=== PATIENT | male | born 1980 | race Caucasian/White ===

== ENCOUNTER 2017-12-05 15:54 | Observation (INO) ==
--- NOTE | 2017-12-05 17:52 | Emergency Department Note ---
Disposition Clinical Impression: Abdominal pain Qualifiers: Abdominal location: right lower quadrant Qualified Code(s): R10.31 - Right lower quadrant pain Altered mental status Qualifiers: Altered mental status type: disorientation Qualified Code(s): R41.0 - Disorientation, unspecified Disposition: Admitted As Inpatient Condition: Fair Time of Disposition: 19:36 Abdominal Pain HPI - General Chief Complaint: ED Abdominal Pain Stated Complaint: Jaundice,Hep C positive Time Seen by Provider: 12/05/17 17:22 Source: patient, other - History of Present Illness HPI Narrative: 37 y/o male with PMH of Hep C and HTN presents to ED with complaints of worsening confusion and lethargy. Pt states that yesterday he was becoming sleepy and confused, SO states that it worsened this morning. SO states that she has noticed that his skin seems more yellow. He feels like his head is in a fog and is sleepy. He has some left sided CP, abdominal pain in the RUQ and RLQ. He states that the abd pain is sharp, beginning in the RLQ and radiating up to the RUQ. He denies nausea, vomiting or diarrhea. He has been constipated, although states that his last BM was 4 hours ago and prior to that he had a BM yesterday. Denies recent sick contacts. Pt denies hallucinations. SO notes that he has not been taking his blood pressure medications. He does not see anyone for his Hep C. He denies recent illicit drug use, but admits to using heroin 1 week ago. Denies benzo use. Denies ETOH use. Pain Scale: 5 - Related Data Home Medications Medication Instructions Recorded Confirmed Buprenorphine HCl/Naloxone HCl 1 tab SL BID 12/05/17 12/05/17 [Buprenorphin-Naloxon 8-2 mg Sl] Allergies Allergy/AdvReac Type Severity Reaction Status Date / Time No Known Allergies Allergy Verified 12/05/17 16:36 All systems ED: reviewed and negative except as stated. 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 Absent: tenderness, lymphadenopathy - Chest Chest inspection: Present: normal inspection, symmetric chest wall rise - Respiratory Respiratory exam: Present: normal lung sounds bilaterally. Absent: respiratory distress, wheezes, stridor, accessory muscle use - Cardiovascular Cardiovascular exam: Present: regular rate, normal rhythm, normal heart sounds, +S1, +S2 - Abdominal Exam Abdominal exam: Present: soft, tenderness, guarding, normal bowel sounds, psoas sign, Tellez's sign, tenderness at McBurney's Point. Absent: distention, rebound, rigidity, obturator sign, heel tap sign, Rovsing's sign, ascites, mass , bruit, hernia, scar Abdominal tenderness: Present: RUQ, RLQ, moderate - Extremities Exam Extremities exam: Present: normal inspection, normal capillary refill, pedal edema (trace). Absent: tenderness - Back Exam Back exam: Present: normal inspection. Absent: CVA tenderness (R), CVA tenderness (L) - Neurological Exam Neurological exam: Present: alert, oriented X3 - Expanded Neurological Exam Patient oriented to: Present: person, place, time Speech: Present: fluid speech (although it is slurred) Coma Scale Eye Opening: Spontaneous Coma Scale Motor Response: Obeys Commands Coma Scale Verbal Response: Oriented Coma Scale Total: 15 - Psychiatric Psychiatric exam: Present: flat affect, other (jaundice) - Skin Skin exam: Present: warm, dry, intact, other Course - Consultations Consultation #1: Discussed the case with Dr. Cooper with Hospitalist service who has accepted pt for admission. Time: 19:36 Vital Signs Temperature 98.1 F 12/05/17 16:37 Pulse Rate 92 12/05/17 16:37 Respiratory Rate 20 12/05/17 16:37 Blood Pressure 115/74 12/05/17 16:37 O2 Sat by Pulse Oximetry 97 12/05/17 16:37 Temperature 98.1 F 12/05/17 16:37 Pulse Rate 87 12/05/17 19:44 Respiratory Rate 12 12/05/17 19:44 Blood Pressure 130/71 12/05/17 19:44 O2 Sat by Pulse Oximetry 97 12/05/17 19:44 Oxygen Delivery Oxygen Delivery Room Air Abdominal Pain - MDM Narrative Medical decision making narrative: 37 y/o male presents with acute onset of rlq abd pain radiating to ruq described as sharp. Pt SO describes increasing lethargy and confusion. Pt noted to be falling asleep during exam, lab staff also noted that pt became more lethargic from lab draw in triage to room. Pt a&o x3. mild jaundice and mild scleral icterus. Pt has RLQ and RUQ pain, positive mcburney and tellez's sign. CBC, CMP, trop, lactic acid, ammonia WNL. UDS positive for benzos. Hepatitis panel, HIV and BC pending. CT head and abdomen negative. Pt has become more lethargic during visit. Mom is now present and states that he and his SO were just released from acute detox facility and started on suboxone. He took one dose yesterday, has not taken any today. Bottle is present with only 5 pills in it, original quantity was 6. Mom states pt has long hx of drug abuse over the past several years and she is not sure what he is into. Pt discussed with hospitalists. Will admit for observation of neuro status and possible MRI in the AM. - Differential Diagnosis Differential Diagnosis: Likely: abdominal pain non-specific, acute appendicitis , constipation - Lab Data Lab results reviewed: Yes I reviewed the patient's lab results. Result diagrams: 12/05/17 17:13 12/05/17 17:13 Lab Results 12/05/17 12/05/17 12/05/17 Range/Units 17:13 17:13 17:50 WBC 7.4 (4.3-11.1) K/mcL RBC 5.06 (4.19-5.50) M/mcL Hgb 14.9 (12.9-16.9) g/dL Hct 45.1 (37.5-50.1) % MCV 89.1 (83.0-100.0) fL MCH 29.4 (28.0-33.3) pg MCHC 33.0 (31.6-35.5) g/dL RDW 13.1 (11.5-14.5) % Plt Count 204 (140-400) K/mcL MPV 11.3 (9.4-12.4) fL Immature Gran % 0.5 (0-4) % Seg Neutrophils % 54.8 % Lymphocytes % 30.4 % Monocytes % 9.0 % Eosinophils % 5.0 % Basophils % 0.3 % Neutrophils # 4.1 (1.6-8.9) K/mcL Lymphocytes # 2.3 (0.6-4.6) K/mcL Monocytes # 0.7 (0.0-1.3) K/mcL Eosinophils # 0.4 (0.0-0.6) K/mcL Basophils # 0.0 (0.0-0.2) K/mcL PT (9.4-12.1) Seconds INR APTT (26.0-36.0) Seconds Sodium 137 (136-145) mEq/L Potassium 4.1 (3.5-5.1) mEq/L Chloride 103 (98-107) mEq/L Carbon Dioxide 27 (23-29) mEq/L BUN 13 (6-20) mg/dL Creatinine 0.88 (0.70-1.30) mg/dL Est GFR ( Amer) > 60 (> 60) Est GFR (Non-Af Amer) > 60 (> 60) BUN/Creatinine Ratio 15 (6-26) Glucose 85 (70-105) mg/dL Calculated Osmolality 283 (280-300) Lactic Acid (0.5-2.2) mmol/L Calcium 9.5 (8.6-10.3) mg/dL Phosphorus 4.0 (2.7-4.5) mg/dL Magnesium 1.9 (1.6-2.6) mg/dL Total Bilirubin 0.5 (0.3-1.0) mg/dL Direct Bilirubin 0.2 (0.0-0.2) mg/dL Indirect Bilirubin 0.3 (0.0-1.2) mg/dL AST 40 H (13-39) Units/L ALT 64 H (7-52) Units/L Alkaline Phosphatase 81 (34-104) Units/L Ammonia 43 (16-53) mcmol/L Troponin I < 0.03 (< 0.04) ng/mL Serum Total Protein 6.8 (6.4-8.9) g/dL Albumin 4.0 (3.5-5.7) g/dL Globulin 2.8 (2.4-3.5) g/dL Albumin/Globulin Ratio 1.4 (1.1-2.2) Amylase 47 (29-103) Units/L Lipase 6 L (11-82) Units/L Urine Color (Yellow) Urine Clarity (Clear) Urine pH (5.0-8.0) pH Units Ur Specific [place] (1.010-1.025) Urine Protein (Neg-Trace) mg/dL Urine Glucose (UA) (Normal) mg/dL Urine Ketones (Negative) mg/dL Urine Blood (Negative) Urine Nitrite (Negative) Urine Bilirubin (Negative) Urine Urobilinogen (Normal) mg/dL Ur Leukocyte Esterase (Negative) Ur Culture Indicated? (NO) Salicylates (15.0-30.0) mg/dL Urine Opiates Screen (Iufagy=765) ng/mL Acetaminophen (10-20) mcg/mL Ur Barbiturates Screen (Cntqfp=177) ng/mL Ur Phencyclidine Scrn (Cutoff=25) ng/mL Ur Amphetamines Screen (Jzpgkn=5498) ng/mL U Benzodiazepines Scrn (Psbasd=026) ng/mL Urine Cocaine Screen (Cutoff= 300) ng/mL U Marijuana (THC) Screen (Cutoff = 50) ng/mL Ur Drug Screen Interp Ethyl Alcohol (Less than 10) mg/dL 12/05/17 12/05/17 12/05/17 Range/Units 18:09 18:38 18:47 WBC (4.3-11.1) K/mcL RBC (4.19-5.50) M/mcL Hgb (12.9-16.9) g/dL Hct (37.5-50.1) % MCV (83.0-100.0) fL MCH (28.0-33.3) pg MCHC (31.6-35.5) g/dL RDW (11.5-14.5) % Plt Count (140-400) K/mcL MPV (9.4-12.4) fL Immature Gran % (0-4) % Seg Neutrophils % % Lymphocytes % % Monocytes % % Eosinophils % % Basophils % % Neutrophils # (1.6-8.9) K/mcL Lymphocytes # (0.6-4.6) K/mcL Monocytes # (0.0-1.3) K/mcL Eosinophils # (0.0-0.6) K/mcL Basophils # (0.0-0.2) K/mcL PT 11.9 (9.4-12.1) Seconds INR 1.1 APTT 35.1 (26.0-36.0) Seconds Sodium (136-145) mEq/L Potassium (3.5-5.1) mEq/L Chloride (98-107) mEq/L Carbon Dioxide (23-29) mEq/L BUN (6-20) mg/dL Creatinine (0.70-1.30) mg/dL Est GFR ( Amer) (> 60) Est GFR (Non-Af Amer) (> 60) BUN/Creatinine Ratio (6-26) Glucose (70-105) mg/dL Calculated Osmolality (280-300) Lactic Acid 1.2 (0.5-2.2) mmol/L Calcium (8.6-10.3) mg/dL Phosphorus (2.7-4.5) mg/dL Magnesium (1.6-2.6) mg/dL Total Bilirubin (0.3-1.0) mg/dL Direct Bilirubin (0.0-0.2) mg/dL Indirect Bilirubin (0.0-1.2) mg/dL AST (13-39) Units/L ALT (7-52) Units/L Alkaline Phosphatase (34-104) Units/L Ammonia (16-53) mcmol/L Troponin I (< 0.04) ng/mL Serum Total Protein (6.4-8.9) g/dL Albumin (3.5-5.7) g/dL Globulin (2.4-3.5) g/dL Albumin/Globulin Ratio (1.1-2.2) Amylase (29-103) Units/L Lipase (11-82) Units/L Urine Color (Yellow) Urine Clarity (Clear) Urine pH (5.0-8.0) pH Units Ur Specific [place] (1.010-1.025) Urine Protein (Neg-Trace) mg/dL Urine Glucose (UA) (Normal) mg/dL Urine Ketones (Negative) mg/dL Urine Blood (Negative) Urine Nitrite (Negative) Urine Bilirubin (Negative) Urine Urobilinogen (Normal) mg/dL Ur Leukocyte Esterase (Negative) Ur Culture Indicated? (NO) Salicylates < 2.5 L (15.0-30.0) mg/dL Urine Opiates Screen (Rscbux=971) ng/mL Acetaminophen < 10 L (10-20) mcg/mL Ur Barbiturates Screen (Bfnadt=876) ng/mL Ur Phencyclidine Scrn (Cutoff=25) ng/mL Ur Amphetamines Screen (Ceyywx=5365) ng/mL U Benzodiazepines Scrn (Vswrmo=871) ng/mL Urine Cocaine Screen (Cutoff= 300) ng/mL U Marijuana (THC) Screen (Cutoff = 50) ng/mL Ur Drug Screen Interp Ethyl Alcohol < 10 (Less than 10) mg/dL 12/05/17 12/05/17 Range/Units 18:55 18:55 WBC (4.3-11.1) K/mcL RBC (4.19-5.50) M/mcL Hgb (12.9-16.9) g/dL Hct (37.5-50.1) % MCV (83.0-100.0) fL MCH (28.0-33.3) pg MCHC (31.6-35.5) g/dL RDW (11.5-14.5) % Plt Count (140-400) K/mcL MPV (9.4-12.4) fL Immature Gran % (0-4) % Seg Neutrophils % % Lymphocytes % % Monocytes % % Eosinophils % % Basophils % % Neutrophils # (1.6-8.9) K/mcL Lymphocytes # (0.6-4.6) K/mcL Monocytes # (0.0-1.3) K/mcL Eosinophils # (0.0-0.6) K/mcL Basophils # (0.0-0.2) K/mcL PT (9.4-12.1) Seconds INR APTT (26.0-36.0) Seconds Sodium (136-145) mEq/L Potassium (3.5-5.1) mEq/L Chloride (98-107) mEq/L Carbon Dioxide (23-29) mEq/L BUN (6-20) mg/dL Creatinine (0.70-1.30) mg/dL Est GFR ( Amer) (> 60) Est GFR (Non-Af Amer) (> 60) BUN/Creatinine Ratio (6-26) Glucose (70-105) mg/dL Calculated Osmolality (280-300) Lactic Acid (0.5-2.2) mmol/L Calcium (8.6-10.3) mg/dL Phosphorus (2.7-4.5) mg/dL Magnesium (1.6-2.6) mg/dL Total Bilirubin (0.3-1.0) mg/dL Direct Bilirubin (0.0-0.2) mg/dL Indirect Bilirubin (0.0-1.2) mg/dL AST (13-39) Units/L ALT (7-52) Units/L Alkaline Phosphatase (34-104) Units/L Ammonia (16-53) mcmol/L Troponin I (< 0.04) ng/mL Serum Total Protein (6.4-8.9) g/dL Albumin (3.5-5.7) g/dL Globulin (2.4-3.5) g/dL Albumin/Globulin Ratio (1.1-2.2) Amylase (29-103) Units/L Lipase (11-82) Units/L Urine Color Yellow (Yellow) Urine Clarity Clear (Clear) Urine pH 6.0 (5.0-8.0) pH Units Ur Specific [place] 1.015 (1.010-1.025) Urine Protein Negative (Neg-Trace) mg/dL Urine Glucose (UA) Normal (Normal) mg/dL Urine Ketones Negative (Negative) mg/dL Urine Blood Negative (Negative) Urine Nitrite Negative (Negative) Urine Bilirubin Negative (Negative) Urine Urobilinogen Normal (Normal) mg/dL Ur Leukocyte Esterase Negative (Negative) Ur Culture Indicated? NO (NO) Salicylates (15.0-30.0) mg/dL Urine Opiates Screen Negative (Otmxjg=086) ng/mL Acetaminophen (10-20) mcg/mL Ur Barbiturates Screen Negative (Aetkfk=730) ng/mL Ur Phencyclidine Scrn Negative (Cutoff=25) ng/mL Ur Amphetamines Screen Negative (Fjevuk=8943) ng/mL U Benzodiazepines Scrn Positive H (Yryqmf=271) ng/mL Urine Cocaine Screen Negative (Cutoff= 300) ng/mL U Marijuana (THC) Screen Negative (Cutoff = 50) ng/mL Ur Drug Screen Interp See Below Ethyl Alcohol (Less than 10) mg/dL - Radiology Data Radiology results reviewed: Yes I reviewed the patient's radiology results. Chest X-Ray 12/05/17 16:43 IMPRESSION: No acute cardiopulmonary abnormality. D/ / Neal Schneider / Neal Schneider Interpreting Provider: Neal Schneider Head CT 12/05/17 18:02 IMPRESSION: No acute intracranial abnormality. D/ / Elian Meléndez MD / Elian Meléndez MD Interpreting Provider: Elian Meléndez MD Abdomen/Pelvis CT 12/05/17 18:05 IMPRESSION: 1. No acute abnormality within the abdomen and pelvis. 2. Subcutaneous edema. D/ / lEian Meléndez MD / Elian Meléndez MD Interpreting Provider: Elian Meléndez MD - EKG Data EKG attestation: Yes I reviewed and interpreted this EKG. EKG results narrative: Sinus rhythm with shortened MO interval of 100ms. No ST elevation or depression. VR 87, MO 100, QES 97, QT 368.
[2017-12-05 17:57] LABS: Basophils % 0.3 %; Eosinophils # 0.4 K/mcL (0.0-0.6); Hematocrit 45.1 % (37.5-50.1); Hemoglobin 14.9 g/dL (12.9-16.9); Immature Granulocytes % 0.5 % (0-4); Lymphocytes # 2.3 K/mcL (0.6-4.6); Lymphocytes % 30.4 %; Mean Corpuscular Hemoglobin 29.4 pg (28.0-33.3); Mean Corpuscular Volume 89.1 fL (83.0-100.0); Mean Platelet Volume 11.3 fL (9.4-12.4); Monocytes # 0.7 K/mcL (0.0-1.3); Neutrophils # 4.1 K/mcL (1.6-8.9); Platelet Count 204 K/mcL (140-400); Red Blood Count 5.06 M/mcL (4.19-5.50); Red Cell Distribution Width 13.1 % (11.5-14.5); Segmented Neutrophils % 54.8 %
[2017-12-05] MEDS ORDERED: Isovue-370 500 ML INFUS..BTL IV ONE (18:05)
[2017-12-05] MEDS ORDERED: 0.9 % Sodium Chloride 1,000 ML IVC ONE (18:09)
[2017-12-05 18:13] LABS: Alanine Aminotransferase 64 Units/L (7-52); Albumin/Globulin Ratio 1.4 (1.1-2.2); Alkaline Phosphatase 81 Units/L (34-104); Amylase 47 Units/L (29-103); Aspartate Amino Transferase 40 Units/L (13-39); BUN/Creatinine Ratio 15 (6-26); Bilirubin,Total 0.5 mg/dL (0.3-1.0); Blood Urea Nitrogen 13 mg/dL (6-20); Calcium 9.5 mg/dL (8.6-10.3); Carbon Dioxide 27 mEq/L (23-29); Chloride 103 mEq/L (98-107); Globulin 2.8 g/dL (2.4-3.5); Glucose 85 mg/dL (70-105); Lipase 6 Units/L (11-82); Osmolality,Calculated 283 (280-300); Potassium 4.1 mEq/L (3.5-5.1); Sodium 137 mEq/L (136-145); Total Protein 6.8 g/dL (6.4-8.9); eGFR For Non-African Americans > 60 (> 60)
[2017-12-05 18:35] LABS: Bilirubin,Direct 0.2 mg/dL (0.0-0.2); Bilirubin,Indirect 0.3 mg/dL (0.0-1.2); Magnesium 1.9 mg/dL (1.6-2.6); Troponin I < 0.03 ng/mL (< 0.04)
[2017-12-05 18:49] LABS: INR 1.1; Prothrombin Time 11.9 Seconds (9.4-12.1)
--- NOTE | 2017-12-05 18:49 | Emergency Department Note ---
Disposition Clinical Impression: Abdominal pain Qualifiers: Abdominal location: right lower quadrant Qualified Code(s): R10.31 - Right lower quadrant pain Disposition: Admitted As Inpatient Forms: ED Satisfaction Letter, Work/School Release General Adult HPI - General Chief complaint: ED Abdominal Pain Stated complaint: Jaundice,Hep C positive Time Seen by Provider: 12/05/17 17:22 Source: patient, other Limitations: altered mental status - History of Present Illness Pain Scale: 5 - Related Data Home Medications Medication Instructions Recorded Confirmed Buprenorphine HCl/Naloxone HCl 1 tab SL BID 12/05/17 12/05/17 [Buprenorphin-Naloxon 8-2 mg Sl] Allergies Allergy/AdvReac Type Severity Reaction Status Date / Time No Known Allergies Allergy Verified 12/05/17 16:36 Past Medical History - Past Medical History Medical history: Reports: hepatitis, hypertension Surgical history: Reports: no surgical history Psychiatric history: Reports: no psych history - Social History Smoking Status: Current every day smoker Smokeless Tobacco Status: No Alcohol use: Reports: none Drug use: Reports: IV Drug Use (heroin, last use 1 week ago) Physical Exam - General Limitations: altered mental status General appearance: lethargic (falling asleep during exam) Course Vital Signs Temperature 98.1 F 12/05/17 16:37 Pulse Rate 92 12/05/17 16:37 Respiratory Rate 20 12/05/17 16:37 Blood Pressure 115/74 12/05/17 16:37 O2 Sat by Pulse Oximetry 97 12/05/17 16:37 Temperature 98.1 F 12/05/17 16:37 Pulse Rate 86 12/05/17 17:41 Respiratory Rate 14 12/05/17 17:41 Blood Pressure 128/73 12/05/17 17:41 O2 Sat by Pulse Oximetry 100 12/05/17 17:41 Oxygen Delivery Oxygen Delivery Room Air Medical Decision Making - Lab Data Result diagrams: 12/05/17 17:13 12/05/17 17:13 Lab Results 12/05/17 12/05/17 Range/Units 17:13 17:13 WBC 7.4 (4.3-11.1) K/mcL RBC 5.06 (4.19-5.50) M/mcL Hgb 14.9 (12.9-16.9) g/dL Hct 45.1 (37.5-50.1) % MCV 89.1 (83.0-100.0) fL MCH 29.4 (28.0-33.3) pg MCHC 33.0 (31.6-35.5) g/dL RDW 13.1 (11.5-14.5) % Plt Count 204 (140-400) K/mcL MPV 11.3 (9.4-12.4) fL Immature Gran % 0.5 (0-4) % Seg Neutrophils % 54.8 % Lymphocytes % 30.4 % Monocytes % 9.0 % Eosinophils % 5.0 % Basophils % 0.3 % Neutrophils # 4.1 (1.6-8.9) K/mcL Lymphocytes # 2.3 (0.6-4.6) K/mcL Monocytes # 0.7 (0.0-1.3) K/mcL Eosinophils # 0.4 (0.0-0.6) K/mcL Basophils # 0.0 (0.0-0.2) K/mcL Sodium 137 (136-145) mEq/L Potassium 4.1 (3.5-5.1) mEq/L Chloride 103 (98-107) mEq/L Carbon Dioxide 27 (23-29) mEq/L BUN 13 (6-20) mg/dL Creatinine 0.88 (0.70-1.30) mg/dL Est GFR ( Amer) > 60 (> 60) Est GFR (Non-Af Amer) > 60 (> 60) BUN/Creatinine Ratio 15 (6-26) Glucose 85 (70-105) mg/dL Calculated Osmolality 283 (280-300) Calcium 9.5 (8.6-10.3) mg/dL Phosphorus 4.0 (2.7-4.5) mg/dL Magnesium 1.9 (1.6-2.6) mg/dL Total Bilirubin 0.5 (0.3-1.0) mg/dL Direct Bilirubin 0.2 (0.0-0.2) mg/dL Indirect Bilirubin 0.3 (0.0-1.2) mg/dL AST 40 H (13-39) Units/L ALT 64 H (7-52) Units/L Alkaline Phosphatase 81 (34-104) Units/L Troponin I < 0.03 (< 0.04) ng/mL Serum Total Protein 6.8 (6.4-8.9) g/dL Albumin 4.0 (3.5-5.7) g/dL Globulin 2.8 (2.4-3.5) g/dL Albumin/Globulin Ratio 1.4 (1.1-2.2) Amylase 47 (29-103) Units/L Lipase 6 L (11-82) Units/L Attestation Statement - Attestation Attestation: I examined this patient and my medical decision-making was reviewed with the Resident Physician. I agree with the documented findings, disposition and treatment plan as described except to the extent set forth below. 37 year old male presents to the ED with complaints of abdominal pain and history of hep C. PAtinet states that he has pain in the RLQ and it raadiates to the RUQ and that he has been feeling more confused that of late. PAtient states that he has no previous history of abdominal srugeies and that he was diagnosed with hep C in 2012. PAtient has been nauseated and is alert although oriented x 1. Airway intact and breathing normally. We will do abdominal pain workup and ADRIANA and danish admit for AMS.
[2017-12-05 18:52] LABS: Activated Partial Thrombo Time 35.1 Seconds (26.0-36.0)
[2017-12-05 19:11] LABS: Bilirubin,Urine Negative (Negative); Blood,Urine Negative (Negative); Clarity,Urine Clear (Clear); Color,Urine Yellow (Yellow); Glucose,Urine (UA) Normal (Normal); Ketones,Urine Negative (Negative); Leukocyte Esterase,Urine Negative (Negative); Nitrite,Urine Negative (Negative); Protein,Urine Negative (Neg-Trace); Specific Gravity,Urine 1.015 (1.010-1.025); Urobilinogen,Urine Normal (Normal)
[2017-12-05 19:21] LABS: Amphetamine Screen,Urine Negative ng/mL (Cutoff=1000); Barbiturate Screen,Urine Negative ng/mL (Cutoff=200); Benzodiazepines Screen,Urine Positive ng/mL (Cutoff=200); Cannabinoid Screen,Urine Negative ng/mL (Cutoff = 50); Cocaine Screen,Urine Negative ng/mL (Cutoff= 300); Opiate Screen,Urine Negative ng/mL (Cutoff=300); Phencyclidine Screen,Urine Negative ng/mL (Cutoff=25)
[2017-12-05 19:31] LABS: Acetaminophen < 10 mcg/mL (10-20); Ethanol < 10 mg/dL (Less than 10); Salicylate < 2.5 mg/dL (15.0-30.0)
[2017-12-05 20:27] LABS: HIV-1&2 Antibody & p24 Ag Nonreactive (Nonreactive); Hepatitis A Antibody IgM Nonreactive (Nonreactive); Hepatitis B Core IgM Nonreactive (Nonreactive); Hepatitis B Surface Antigen Nonreactive (Nonreactive)
--- NOTE | 2017-12-05 20:36 | Internal Med History&Physical ---
Date of Encounter: 12/05/17 Time of Encounter: 20:35 Internal Medicine - H&P: HPI Chief complaint: Large joint swelling, jaundice, lethargy Admitted From: Emergency Dept Plans for Post Hospital Care: Home History of present illness: Mr. Solorzano is a 37 year old male with a past medical history of hepatitis C, IV drug use, hypertension presented to emergency department with a complaint of showing swelling, lethargy, jaundice 1 day. Patient states his girlfriend first noticed scleral icterus yesterday. His hepatitis C secondary to IV drug use with most recent usage approximately 1 week ago. He does admit to heroin usage. He was also admitted to a rehabilitation facility this weekend and was discharged on Librium and Suboxone. He states he has been compliant with his medications with most recent usage being yesterday. His hepatitis C is untreated and diagnosed approximately 3 years ago. During examination this evening, patient is very lethargic and no family is present at bedside. He is able to answer questions appropriately but does fall asleep multiple times during interview. He states that he has not been having any symptoms of fevers, chills, chest pain, shortness of breath. He does admit to abdominal pain located most severely in the right lower quadrant but also admits to epigastric, right upper quadrant and suprapubic pain present in the same time. Pain is sharp and constant in nature. Also admits to some difficulty starting streams in the morning but otherwise denies urinary symptoms. Bowel movements are normal. He states he has never had complications from his hepatitis and denies any previous history of jaundice or hepatic encephalopathy. In the emerged department, vital signs are unremarkable and he is tolerating room air. Lab results significant for a very mildly elevated LFTs of AST of 40 , ALC of 64. Ammonia within normal limits at 43, lipase, white count within normal limits. Head CT was obtained and unremarkable. CT of the abdomen was also within normal limits as well as a chest x-ray. He was given 1 L saline bolus admitted to medicine floor for further evaluation for altered mental status. Past medical history as above Denies past surgical history Social history including current every day smoker, denies alcohol use, admits to IV drug use of heroin most recently 1 week ago. Past Med Surg Social Fam HX - Past Medical History Medical history: hepatitis, hypertension Additional medical history: Hep C Psychiatric history: no psych history - Past Surgical History Surgical History: no surgical history Additional surgical history: bilateral eye surgeries. right shoulder rotator cuff - Social History Smoking Status: Current every day smoker Smokeless Tobacco Status: No Alcohol use: none Drug use: IV Drug Use (heroin, last use 1 week ago) Internal Medicine - H&P: Meds Buprenorphine HCl/Naloxone HCl [Buprenorphin-Naloxon 8-2 mg Sl] 1 tab SL BID [History] 3 Allergy/AdvReac Type Severity Reaction Status Date / Time No Known Allergies Allergy Verified 12/05/17 16:36 ROS unobtainable: due to mental status All Systems PM: A 10-system review of systems was performed and is negative for pertinent findings except as documented above in the HPI. - Constitutional Constitutional: no chills, no excessive sweating, no fatigue, no fever(s), no malaise - Cardiovascular Cardiovascular ROS IM: edema, no chest pain, no diaphoresis, no dyspnea, no dyspnea on exertion, no orthopnea, no palpitations - Respiratory Respiratory: no cough, no dyspnea, no dyspnea on exertion - Gastrointestinal Gastrointestinal: abdominal pain, bloating, nausea, no change in bowel habits, no change in stool character, no constipation, no cramping, no diarrhea, no hematemesis, no hematochezia, no loose stools, no melena, no vomiting - Genitourinary Genitourinary ROS male: difficulty urinating, no dysuria, no flank pain, no hematuria - Integumentary Integumentary IM: jaundice Additional comments: Scleral icterus - Neurological Neurological ROS: confusion, no dizziness, no focal weakness, no numbness, no tingling, no weakness - Constitutional Vitals: Temp Pulse Resp BP Pulse Ox 97.5 F L 87 14 137/67 98 12/05/17 20:34 12/05/17 20:34 12/05/17 20:34 12/05/17 20:34 12/05/17 20:34 Exam: Gen.: Vitals noted. No acute distress. Alert and oriented however is very lethargic on exam. Falling asleep multiple times during interview HEENT: PERRL, oropharynx clear, Normocephalic, atraumatic, MMM. No evidence of scleral icterus Cardiac: RRR, no murmur, +S1/S2 Pulmonary: CTA bilaterally, no wheezes, rales or rhonchi, equal chest expansion Abdomen: soft, mildly tender to epigastric, right lower quadrant, right upper quadrant, BS noted, no guarding, no rebound. MSK: ROM intact, no joint swelling noted Extremities: no BLE edema, nontender calf, no cyanosis or clubbing Neuro: A&O, moves all extremities, no focal deficits, strength equal in all extremities, no numbness or tingling Psych: Unable to fully assess Internal Med - H&P Results - Labs CBC & Chem 7: 12/05/17 17:13 12/05/17 17:13 - Assessment and plan (1) Altered mental status Current Visit: Yes Status: Acute Assessment and plan: - Unclear etiology at this time - Most likely secondary to medication side effects. Patient admits to benzodiazepines, history of opioid abuse - Urine drug screen obtained emergency department positive for benzodiazepines, negative for opiates - Ammonia level within normal limits at 43. No known history of cirrhosis - Patient is alert and oriented and answers question appropriately, however he is quite lethargic on exam - CT head negative in Emergency department. Labs relatively unremarkable Plan - Continue supportive care - Consider MRI in AM if patient remains altered. - Also consider neuro consult if necessary in AM Qualifiers: Altered mental status type: somnolence Qualified Code(s): R40.0 - Somnolence (2) Abdominal pain Current Visit: Yes Status: Acute Assessment and plan: - Generalized abdominal pain, CT abdomen negative in the emergency department - Patient is noticeably falling asleep during interview - Possibly secondary to opioid withdrawal - Continue supportive treatment including ibuprofen. We will avoid Tylenol given history of hepatitis and opioids given history of IV drug use. Qualifiers: Abdominal location: right lower quadrant Qualified Code(s): R10.31 - Right lower quadrant pain (3) Hepatitis C Current Visit: Yes Status: Chronic Assessment and plan: - Known history of chronic hepatitis C without complication - No treatment in the past - Ammonia normal, CT abdomen shows no cirrhotic appearance. - Recommend GI follow up as outpatient for chronic management however still admits to IVDU Qualifiers: Viral hepatitis chronicity: chronic Hepatic coma status: without hepatic coma Qualified Code(s): B18.2 - Chronic viral hepatitis C (4) IVDU (intravenous drug user) Current Visit: Yes Status: Chronic Assessment and plan: Most recent use 1 week ago. - Monitor for signs of withdrawl - Blood cultures drawn in ED, does not appear septic at this time. (5) HTN (hypertension) Current Visit: Yes Status: Acute Assessment and plan: - No home medications - Moderately well controlled at 130/71 - Continue to monitor Qualifiers: Hypertension type: essential hypertension Qualified Code(s): I10 - Essential (primary) hypertension (6) Jaundice Current Visit: Yes Status: Suspected Assessment and plan: - No jaundice appreciated on Exam - Bilirubin 0.5 - Report from patient and girlfriend - Continue to monitor - Unlikely at this time. (7) DVT prophylaxis Current Visit: Yes Status: Acute Assessment and plan: - Heparin 5000 units q12 hours - Time Spent With Patient Total time spent is greater than 50% in coordination of care (as documented) at patient's floor/unit and/or counseling patient:
[2017-12-05] MEDS ORDERED: Ibuprofen 400 MG TABLET PO PRN (20:37)
[2017-12-05] MEDS ORDERED: Naloxone 0.4 MG/ML INJ IVP PRN (20:37)
[2017-12-05 21:06] LABS: Hepatitis C Virus Antibody Reactive (Nonreactive)
[2017-12-06 04:08] VITALS: BP 119/71
[2017-12-06 05:47] LABS: Basophils % 0.3 %; Eosinophils # 0.4 K/mcL (0.0-0.6); Eosinophils % 6.1 %; Hematocrit 42.8 % (37.5-50.1); Hemoglobin 13.9 g/dL (12.9-16.9); Immature Granulocytes % 0.5 % (0-4); Lymphocytes # 2.1 K/mcL (0.6-4.6); Lymphocytes % 34.4 %; Mean Corpuscular HGB Conc 32.5 g/dL (31.6-35.5); Mean Corpuscular Hemoglobin 29.2 pg (28.0-33.3); Mean Corpuscular Volume 89.9 fL (83.0-100.0); Mean Platelet Volume 11.2 fL (9.4-12.4); Monocytes # 0.5 K/mcL (0.0-1.3); Monocytes % 8.6 %; Neutrophils # 3.1 K/mcL (1.6-8.9); Platelet Count 176 K/mcL (140-400); Red Blood Count 4.76 M/mcL (4.19-5.50); Red Cell Distribution Width 13.1 % (11.5-14.5); Segmented Neutrophils % 50.1 %
[2017-12-06] MEDS ORDERED: *HR* Heparin 5,000 UNIT/ML VIAL SQ SCH (06:00)
--- NOTE | 2017-12-06 14:10 | Discharge Summary ---
Date of Encounter: 12/06/17 Time of Encounter: 14:08 - Discharge Diagnosis (1) IVDU (intravenous drug user) Priority: Primary Status: Chronic (2) Abdominal pain Priority: Secondary Status: Acute Qualifiers: Abdominal location: right lower quadrant Qualified Code(s): R10.31 - Right lower quadrant pain (3) Altered mental status Priority: Secondary Status: Acute Qualifiers: Altered mental status type: somnolence Qualified Code(s): R40.0 - Somnolence (4) DVT prophylaxis Priority: Secondary Status: Acute (5) Hepatitis C Priority: Secondary Status: Chronic Qualifiers: Viral hepatitis chronicity: chronic Hepatic coma status: without hepatic coma Qualified Code(s): B18.2 - Chronic viral hepatitis C (6) HTN (hypertension) Priority: Secondary Status: Acute Qualifiers: Hypertension type: essential hypertension Qualified Code(s): I10 - Essential (primary) hypertension (7) Jaundice Priority: Secondary Status: Suspected Hospital course: Mr. Solorzano is a 37 year old male was admitted to the hospital on December 05. Patient left AGAINST MEDICAL ADVICE. Did not have a chance to evaluate the patient - Time Spent with Patient Total time spent providing and/or coordinating discharge services: Less than 30 minutes - Discharge Medications Home Medications: Buprenorphine HCl/Naloxone HCl [Buprenorphin-Naloxon 8-2 mg Sl] 1 tab SL BID [History] Allergies/Adverse Reactions: 3 Allergy/AdvReac Type Severity Reaction Status Date / Time No Known Allergies Allergy Verified 12/05/17 16:36 Date of admission: 12/05/17 19:49 Primary care physician: Cabrera Moreland MD Consults: 12/06/17 01:53 Consult to Nutrition [CONS] Routine Comment: Consulting Provider: NUTRITION Reason for Dietary Consult: Other - Constitutional Vitals: Temp Pulse Resp BP Pulse Ox 97.9 F 84 15 119/71 98 12/06/17 04:07 12/06/17 04:07 12/06/17 04:07 12/06/17 04:07 12/06/17 04:07 Exam: na - Patient Status Disposition: Left Against Medical Advice Condition: Fair - Discharge Instructions Follow Up With: Cabrera Moreland MD [Primary Care Provider] -
--- NOTE | 2017-12-07 21:08 | Electrocardiograph Report ---
[address] [place], [place] [address] Test Date: 2017-12-05 Pat Name: Jaskaran Solorzano Department: 104 Room: 3A Gender: M Certified Registered Dental Assistant: EHSAN : 1980 Requested By: Tonny Aaron Order Number: [id number] Reading MD: Louann Rosen Measurements Intervals [place] Rate: 87 P: 43 CA: 100 QRS: 53 QRSD: 97 T: 62 QT: 368 QTc: 412 Interpretive Statements SINUS RHYTHM WITH SHORT CA INTERVAL Electronically Signed On 12-07-2017 17:31:05 EDT by Louann Rosen
== END 2017-12-06 10:21 | disposition left against medical advice (07) ==
LOC: 3ANU 15:54 → EMEROO 15:54 → SUATTDRO 19:49 → 3ANU 20:14
PROVIDERS: ADMIT Family Medicine; ATTEND Internal Medicine

== ENCOUNTER 2019-12-23 21:16 | Observation (INO) ==
[2019-12-23] MEDS ORDERED: Naloxone 0.4 MG/ML INJ IVP ONE (21:41)
[2019-12-23] MEDS ORDERED: 0.9 % Sodium Chloride 1,000 ML IVC ONE (21:42)
[2019-12-23 22:06] LABS: Basophils % 0.2 %; Eosinophils # 0.1 K/mcL (0.0-0.6); Eosinophils % 0.6 %; Hematocrit 41.8 % (37.5-50.1); Hemoglobin 13.1 g/dL (12.9-16.9); Immature Granulocytes % 0.5 % (0-4); Lymphocytes # 1.1 K/mcL (0.6-4.6); Lymphocytes % 11.2 %; Mean Corpuscular HGB Conc 31.3 g/dL (31.6-35.5); Mean Corpuscular Hemoglobin 28.9 pg (28.0-33.3); Mean Corpuscular Volume 92.1 fL (83.0-100.0); Mean Platelet Volume 10.7 fL (9.4-12.4); Monocytes # 0.6 K/mcL (0.0-1.3); Monocytes % 6.4 %; Neutrophils # 7.6 K/mcL (1.6-8.9); Platelet Count 184 K/mcL (140-400); Red Blood Count 4.54 M/mcL (4.19-5.50); Red Cell Distribution Width 12.7 % (11.5-14.5); Segmented Neutrophils % 81.1 %; White Blood Count 9.3 K/mcL (4.3-11.1)
[2019-12-23 22:21] LABS: Bilirubin,Urine Negative (Negative); Blood,Urine Negative (Negative); Clarity,Urine Clear (Clear); Color,Urine Yellow (Yellow); Glucose,Urine (UA) Normal (Normal); Ketones,Urine Negative (Negative); Leukocyte Esterase,Urine Negative (Negative); Nitrite,Urine Negative (Negative); Protein,Urine Negative (Neg-Trace); Specific Gravity,Urine 1.025 (1.010-1.025); Urobilinogen,Urine Normal (Normal)
[2019-12-23 22:25] LABS: Acetaminophen < 10 mcg/mL (10-20); Alanine Aminotransferase 77 Units/L (7-52); Albumin 3.7 g/dL (3.5-5.7); Albumin/Globulin Ratio 1.3 (1.1-2.2); Alkaline Phosphatase 76 Units/L (34-104); Aspartate Amino Transferase 56 Units/L (13-39); BUN/Creatinine Ratio 18 (6-26); Bilirubin,Direct 0.1 mg/dL (0.0-0.2); Bilirubin,Indirect 0.4 mg/dL (0.0-1.0); Bilirubin,Total 0.5 mg/dL (0.3-1.0); Blood Urea Nitrogen 17 mg/dL (6-20); Calcium 8.9 mg/dL (8.6-10.3); Carbon Dioxide 30 mEq/L (23-29); Chloride 101 mEq/L (98-107); Ethanol < 10 mg/dL (Less than 10); Globulin 2.8 g/dL (2.4-3.5); Glucose 115 mg/dL (70-105); Osmolality,Calculated 284 (280-300); Potassium 5.2 mEq/L (3.5-5.1); Salicylate < 2.5 mg/dL (15.0-30.0); Sodium 136 mEq/L (136-145); Total Protein 6.5 g/dL (6.4-8.9); eGFR For African Americans > 60 (> 60); eGFR For Non-African Americans > 60 (> 60)
[2019-12-23 22:31] LABS: Amphetamine Screen,Urine Negative ng/mL (Cutoff=1000); Barbiturate Screen,Urine Negative ng/mL (Cutoff=200); Benzodiazepines Screen,Urine Positive ng/mL (Cutoff=200); Cannabinoid Screen,Urine Negative ng/mL (Cutoff = 50); Cocaine Screen,Urine Negative ng/mL (Cutoff= 300); Opiate Screen,Urine Negative ng/mL (Cutoff=300); Phencyclidine Screen,Urine Negative ng/mL (Cutoff=25)
[2019-12-23] MEDS ORDERED: Naloxone 0.4 MG/ML INJ IVP PRN (23:39)
[2019-12-24] MEDS ORDERED: Perflutren Lipid Microsphere 1.3 ML in 0.9 % Sodium Chloride 8.7 ML IVP PRN (00:50)
[2019-12-24] MEDS ORDERED: *HR* Promethazine 25 MG/ML VIAL IVP PRN (02:10)
[2019-12-24] MEDS: *HR* Heparin 5,000 UNIT/ML VIAL SQ SCH ×2 (05:17→18:31)
[2019-12-24] MEDS: 0.9 % Sodium Chloride 1,000 ML IVC SCH ×2 (05:17→20:18)
[2019-12-24 07:11] LABS: Basophils % 0.3 %; Eosinophils # 0.2 K/mcL (0.0-0.6); Eosinophils % 3.4 %; Hematocrit 39.6 % (37.5-50.1); Hemoglobin 12.1 g/dL (12.9-16.9); Immature Granulocytes % 0.4 % (0-4); Lymphocytes # 1.9 K/mcL (0.6-4.6); Lymphocytes % 28.2 %; Mean Corpuscular HGB Conc 30.6 g/dL (31.6-35.5); Mean Corpuscular Hemoglobin 28.2 pg (28.0-33.3); Mean Corpuscular Volume 92.3 fL (83.0-100.0); Mean Platelet Volume 11.1 fL (9.4-12.4); Monocytes # 0.7 K/mcL (0.0-1.3); Monocytes % 10.4 %; Neutrophils # 3.9 K/mcL (1.6-8.9); Platelet Count 152 K/mcL (140-400); Red Blood Count 4.29 M/mcL (4.19-5.50); Red Cell Distribution Width 12.8 % (11.5-14.5); Segmented Neutrophils % 57.3 %; White Blood Count 6.8 K/mcL (4.3-11.1)
[2019-12-24 07:15] LABS: INR 1.2; Prothrombin Time 13.5 Seconds (9.4-12.1)
[2019-12-24 07:31] LABS: Alanine Aminotransferase 68 Units/L (7-52); Albumin 3.2 g/dL (3.5-5.7); Albumin/Globulin Ratio 1.1 (1.1-2.2); Alkaline Phosphatase 68 Units/L (34-104); Aspartate Amino Transferase 51 Units/L (13-39); BUN/Creatinine Ratio 20 (6-26); Bilirubin,Total 0.4 mg/dL (0.3-1.0); Blood Urea Nitrogen 13 mg/dL (6-20); Calcium 8.5 mg/dL (8.6-10.3); Carbon Dioxide 28 mEq/L (23-29); Chloride 105 mEq/L (98-107); Globulin 2.8 g/dL (2.4-3.5); Glucose 92 mg/dL (70-105); Magnesium 1.9 mg/dL (1.6-2.6); Osmolality,Calculated 284 (280-300); Phosphorous 3.4 mg/dL (2.7-4.5); Potassium 3.9 mEq/L (3.5-5.1); Sodium 137 mEq/L (136-145); eGFR For African Americans > 60 (> 60); eGFR For Non-African Americans > 60 (> 60)
[2019-12-24] MEDS ORDERED: Nicotine 21 MG PATCH.TD24 TD SCH (09:00)
[2019-12-24] MEDS: Piperacillin/Tazobactam 3.375 GM in 0.9 % Sodium Chloride Mini Bag 100 ML IVPB SCH ×2 (09:48→15:27)
[2019-12-24] MEDS: Vancomycin 1,250 MG/262.5 ML IV.SOLN IVPB SCH (15:28)
[2019-12-25] MEDS: Piperacillin/Tazobactam 3.375 GM in 0.9 % Sodium Chloride Mini Bag 100 ML IVPB SCH (01:32)
[2019-12-25] MEDS: Vancomycin 1,250 MG/262.5 ML IV.SOLN IVPB SCH (02:29)
[2019-12-25 03:56] LABS: Basophils % 0.4 %; Eosinophils # 0.3 K/mcL (0.0-0.6); Hematocrit 39.8 % (37.5-50.1); Hemoglobin 12.7 g/dL (12.9-16.9); Immature Granulocytes % 0.5 % (0-4); Lymphocytes # 1.9 K/mcL (0.6-4.6); Lymphocytes % 34.7 %; Mean Corpuscular HGB Conc 31.9 g/dL (31.6-35.5); Mean Corpuscular Hemoglobin 29.5 pg (28.0-33.3); Mean Corpuscular Volume 92.3 fL (83.0-100.0); Monocytes # 0.5 K/mcL (0.0-1.3); Monocytes % 9.4 %; Neutrophils # 2.7 K/mcL (1.6-8.9); Platelet Count 165 K/mcL (140-400); Red Blood Count 4.31 M/mcL (4.19-5.50); Red Cell Distribution Width 12.5 % (11.5-14.5); White Blood Count 5.5 K/mcL (4.3-11.1)
[2019-12-25 04:09] LABS: Alanine Aminotransferase 78 Units/L (7-52); Albumin 2.8 g/dL (3.5-5.7); Alkaline Phosphatase 68 Units/L (34-104); Aspartate Amino Transferase 55 Units/L (13-39); BUN/Creatinine Ratio 19 (6-26); Bilirubin,Total 0.3 mg/dL (0.3-1.0); Blood Urea Nitrogen 13 mg/dL (6-20); Calcium 8.3 mg/dL (8.6-10.3); Carbon Dioxide 28 mEq/L (23-29); Chloride 109 mEq/L (98-107); Globulin 2.7 g/dL (2.4-3.5); Glucose 93 mg/dL (70-105); Osmolality,Calculated 290 (280-300); Potassium 4.3 mEq/L (3.5-5.1); Sodium 140 mEq/L (136-145); Total Protein 5.5 g/dL (6.4-8.9); eGFR For African Americans > 60 (> 60); eGFR For Non-African Americans > 60 (> 60)
[2019-12-25] MEDS: *HR* Heparin 5,000 UNIT/ML VIAL SQ SCH (06:25)
[2019-12-25 06:50] VITALS: BP 143/82
== END 2019-12-25 09:32 | disposition home or self-care (01) ==
LOC: EMEROOARM 21:16 → 3ANU 21:16 → SUATTDRO 12-24 00:23 → 3ANU 12-24 00:47
PROVIDERS: ADMIT Internal Medicine; ATTEND Family Medicine